=== PATIENT | female | born 1995 | race Two or more races ===

== ENCOUNTER 2024-04-30 23:24 | Emergency (ER) | payer MEDICAID, SELFPAY ==
[2024-04-30 23:54] VITALS: BP 105/67; PULSE 109; RESP 20; TEMP 36.8; O2SAT 99
--- NOTE | 2024-05-01 | XR_ITS ---
Number examination: PA lateral chest 2 views Technique: Upright PA lateral chest 2 views Exam date and time: May 01, 1999 2512 0 5:00 AM Comparison May 16, 2022 Indications: Onset chest pain today. Findings: Normal heart size Lungs are clear. The osseous structures are intact Impression: No active disease
--- NOTE | 2024-05-01 | EKG_ITS ---
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
--- NOTE | 2024-05-01 00:05 | PD.EDRME ---
Rapid Medical Screening Exam RME Arrival date/time: 04/30/24 23:24 29 year old f with c/o of chest pain. I have greeted and performed a focused initial assessment of this patient. A comprehensive ED assessment and evaluation of the patient, analysis of all test results, and completion of the medical decision making process will be conducted by additional ED providers. Chief Complaint: General Adult/Misc Complain Time Seen by Provider: 04/30/24 23:36 Vital signs: Vital Signs Temperature 98.3 F 04/30/24 23:54 Pulse Rate 109 H 04/30/24 23:54 Respiratory Rate 20 04/30/24 23:54 Blood Pressure 105/67 04/30/24 23:54 Pulse Oximetry (%) 99 04/30/24 23:54 Oxygen Delivery Method Room Air 04/30/24 23:54
[2024-05-01] MEDS: ONDANSETRON ODT 4 MG TABRAP PO (00:16)
[2024-05-01 00:23] LABS: Basophils % (Auto) 0 % (0-2.5); Eosinophils # (Auto) 0.1 Thou/mm3 (0.0-0.5); Eosinophils % (Auto) 2 % (0-10); Hematocrit 36.6 % (36.0-46.0); Immature Granulocytes % (Auto) 0 % (0-0); Immature Granulocytes Auto 0.02 Thou/mm3 (0.00-0.00); Lymphocytes # (Auto) 1.7 Thou/mm3 (1.0-4.8); Lymphocytes % (Auto) 19 % (10-50); Mean Corpuscular HGB Conc 32.8 g/dl (31.0-37.0); Mean Corpuscular Hemoglobin 27.9 pg (25.0-35.0); Mean Corpuscular Volume 85 fL (80-100); Monocytes # (Auto) 0.8 Thou/mm3 (0.0-0.8); Monocytes % (Auto) 9 % (0-12); Neutrophils # (Auto) 6.3 Thou/mm3 (1.8-7.7); Neutrophils % (Auto) 71 % (37-80); Nucleated Red Blood Cell % 0 /100 WBC (0); Platelet Count 262 Thou/mm3 (140-440); RDW Standard Deviation 43.9 fL (36.4-46.3); White Blood Count 8.9 Thou/mm3 (3.6-11.0)
[2024-05-01 00:45] LABS: Alanine Aminotransferase 24 U/L (10-49); Albumin, Serum 4.6 gm/dL (3.5-5.0); Albumin/Globulin Ratio 1.6 (1.2-2.2); Alkaline Phosphatase 102 U/L (46-116); Anion Gap 7 (7-16); Aspartate Amino Transferase 17 U/L (0-34); BUN/Creatinine Ratio 23 Ratio (12-20); Bilirubin,Total 0.2 mg/dL (0.3-1.2); Blood Urea Nitrogen 16 mg/dL (9-23); Calcium 9.6 mg/dL (8.3-10.6); Calcium (Corrected) 9.6 mg/dL (8.5-10.1); Carbon Dioxide 27.9 mMol/L (20.0-31.0); Chloride 105 mMol/L (98-107); Creatinine (Component) 0.7 mg/dL (0.6-1.3); Globulin 2.8 gm/dL (2.3-3.5); Glucose 107 mg/dL (74-106); HCG,Qualitative Serum Negative; Osmolality,Calculated 280 (275-295); Sodium 140 mMol/L (136-145); Thyroid Stimulating Hormone 0.51 uIU/mL (0.55-4.78); Total Protein 7.4 gm/dL (5.7-8.2); Troponin I < 0.002 ng/mL (0.0-0.045); eGFR > 60 See Note
--- NOTE | 2024-05-01 02:05 | PD.EDADULT ---
ED General RME/HPI General Chief complaint: General Adult/Misc Complain Stated complaint: RIGHT CP, RIGHT ARM PAIN Time Seen by Provider: 04/30/24 23:36 Source: patient Arrival date/time: 04/30/24 23:24 Mode of arrival: ambulatory Limitations: no limitations RME / HPI RME / HPI narrative: 04/30/24 23:24 29 year old f with c/o of chest pain. I have greeted and performed a focused initial assessment of this patient. A comprehensive ED assessment and evaluation of the patient, analysis of all test results, and completion of the medical decision making process will be conducted by additional ED providers. Dr. Hernandez?s Main ED Evaluation: This is a 29-year-old female who is currently , presenting with right-sided upper chest pain radiating to the right jaw and right arm. She describes the pain as strong and reports it worsens with movement. The patient denies any previous episodes of similar pain. She notes that she fainted approximately one month ago but denies any associated injuries. She denies any recent accidents, falls, or trauma in the past 24 hours. Additionally, she denies any flu-like symptoms or other associated symptoms. The patient has not taken any pain medication for this episode. Related Data Previous Rx's ?Medication ?Instructions ?Recorded dicyclomine 20 mg tablet 20 mg PO BID PRN abdominal pain 12/19/21 #60 tabs meloxicam 7.5 mg tablet 7.5 mg PO QDAY #14 tabs 02/11/22 ondansetron HCl 4 mg tablet 4 mg PO TID PRN nausea and 03/02/22 vomiting #14 tabs rndwtwc-ppcwypvokkjbe-rtlqbwnp 250 1 tab PO Q6H PRN headache #20 tabs 05/16/22 mg-250 mg-65 mg tablet (Excedrin Migraine) dicyclomine 20 mg tablet 20 mg PO BID PRN abdominal pain 02/25/23 #30 tabs Allergies Allergy/AdvReac Type Severity Reaction Status Date / Time Penicillins Allergy Severe UNKNOWN Verified 12/05/23 20:37 soybean Allergy Severe UNKNOWN Verified 12/05/23 20:37 Review of Systems Review of Systems Systems Reviewed: All systems reviewed, normal except as documented ED Exam Narrative Physical exam: GENERAL APPEARANCE: AxOx4, generally well-appearing, no acute distress. HEENT: NC, AT. MMM. EOMI, clear conjunctiva, oropharynx clear. NECK: Supple without lymphadenopathy. No stiffness or restricted ROM. HEART: Normal rate and regular rhythm, normal S1/S1, no m/r/g LUNGS: CTAB, moving air well. No crackles or wheezes are heard. ABDOMEN: Soft, nontender, nondistended with good bowel sounds heard. BACK: No midline C/T/L spine pain or deformity, No CVAT, no obvious deformity. EXTREMITIES: Without cyanosis, clubbing or edema. MUSCULOSKELETAL: FROM of all major joints, no chest tenderness NEUROLOGICAL: Grossly nonfocal. Alert and oriented, moving all 4 extremities. CN not formally tested but appear grossly intact. Observed to ambulate with normal gait. Skin: Warm and dry without any rash. General Limitations: Present no limitations Course Course Course Narrative: CXR is ordered for determining etiology of chest pain. Quality Measures none Orders Category Date Time Status EKG (ED ONLY) *Do not use* NOW Care 05/01/24 00:00 Completed EKG (ED Only) Stat Exams 05/01/24 00:00 Draft XR chest 2V Stat Exams 05/01/24 00:00 Taken CBC Stat Lab 05/01/24 00:17 Completed CMP [Comprehensive Metabolic Panel] Stat Lab 05/01/24 00:17 Completed HCG,Qualitative Serum Stat Lab 05/01/24 00:17 Completed TSH [Thyroid Stimulating Hormone] Stat Lab 05/01/24 00:17 Completed Troponin I Stat Lab 05/01/24 00:17 Completed Ondansetron Odt [Zofran Odt] Med 05/01/24 00:04 Discontinued 4 mg PO X1 ONE Vital Signs Vital signs: Vital Signs Temperature 98.3 F 04/30/24 23:54 Pulse Rate 109 H 04/30/24 23:54 Respiratory Rate 20 04/30/24 23:54 Blood Pressure 105/67 04/30/24 23:54 Pulse Oximetry (%) 99 04/30/24 23:54 Oxygen Delivery Method Room Air 04/30/24 23:54 Procedures -ED Procedure Comment EKG personally interpreted by me 05/01/2024; 2108: Interpreted by me, Normal sinus rhythm, HR 99, normal axis, normal intervals, no acute ST or T-wave changes, no STEMI. MDM Patient data External records reviewed:: [facility] previous records Clinical information provided by:: patient Social determinants that could affect healthcare access:: none Patient has the following chronic illnesses:: See PMH How is presenting disease/condition affected by chronic disease/condition?: uneffected by Evaluation data The following diagnostics were reviewed and interpreted by me:: lab results, radiology exam(s) and EKG tracing(s) Lab and/or radiology exams considered but not ordered:: None Interpretation Summary: See narrative Medications Medications considered but not ordered:: None Medication administrations:: Medication Administration History Discontinued Medications Ondansetron HCl (Ondansetron Odt 4 Mg Tabrap) 4 mg PO X1 ONE; Protocol Stop: 05/01/24 00:05 Last Admin: 05/01/24 00:16 Dose: 4 mg Documented By: KF As above Consultations Consultation(s) initiated? (list below): No Diagnosis Differential Diagnosis ED Complaint MDM: Musculoskeletal pain, pneumonia, and pneumothorax Most likely diagnosis given after review of the tests above:: See clinical impression below Admission Indicated Admission indicated?: not indicated Explain why admission is indicated or not indicated:: Patient has no emergent abnormalities in their studies and can be managed on an outpatient basis. Admission Request Was there a request for admission?: No Disposition Plan Disposition Plan: Discharge Discharge Attestation Discharge Attestation: The patient and all family members were given an opportunity to ask questions and understood the discharge instructions. Discharge instructions specifically effects, indications for sooner follow up or return to the emergency department, and the expected course of current diagnosis. Patient condition: Stable Medical Decision Making [facility] Narrative MDM Narrative: Scribe Attestation: Amanda Wilson am scribing for and in the presence of Dr. Hernandez. Provider Notation: Although this document has been carefully reviewed, there may still be some phonetic and other typographical errors. These errors are purely grammatical due to imperfections in the software program and should not be construed in any way to compromise the substance of the patient's medical care during this visit. Differential Diagnosis Differential Diagnosis: Musculoskeletal pain, pneumonia, and pneumothorax Medical Records Medical records reviewed: Yes I reviewed the patient's medical records. Lab Data Lab results reviewed: Yes I reviewed the patient's lab results. 05/01/24 00:17 05/01/24 00:17 Labs: Lab Results 05/01/24 Range/Units 00:17 WBC 8.9 (3.6-11.0) Thou/mm3 RBC 4.30 (4.00-5.20) Miln/mm3 Hgb 12.0 (12.0-16.0) g/dL Hct 36.6 (36.0-46.0) % MCV 85 (80-100) fL MCH 27.9 (25.0-35.0) pg MCHC 32.8 (31.0-37.0) g/dl RDW Std Deviation 43.9 (36.4-46.3) fL Plt Count 262 (140-440) Thou/mm3 Neut % (Auto) 71 (37-80) % Lymph % (Auto) 19 (10-50) % [place] % (Auto) 9 (0-12) % Eos % (Auto) 2 (0-10) % Baso % (Auto) 0 (0-2.5) % Neut # (Auto) 6.3 (1.8-7.7) Thou/mm3 Lymph # (Auto) 1.7 (1.0-4.8) Thou/mm3 [place] # (Auto) 0.8 (0.0-0.8) Thou/mm3 Eos # (Auto) 0.1 (0.0-0.5) Thou/mm3 Baso # (Auto) 0.0 (0.0-0.2) Thou/mm3 Immature Gran # (Auto) 0.02 H (0.00-0.00) Thou/mm3 Absolute Nucleated RBC 0.00 (0.00-0.00) Thou/mm3 Immature Gran % 0 (0-0) % Nucleated RBC % 0 (0) /100 WBC Sodium 140 (136-145) mMol/L Potassium 4.0 (3.4-5.1) mMol/L Chloride 105 (98-107) mMol/L Carbon Dioxide 27.9 (20.0-31.0) mMol/L Anion Gap 7 (7-16) BUN 16 (9-23) mg/dL Creatinine 0.7 (0.6-1.3) mg/dL Estim Creat Clear Calc Not Performed. eGFR > 60 (60 - ) See Note BUN/Creatinine Ratio 23 H (12-20) Ratio Glucose 107 H (74-106) mg/dL Calculated Osmolality 280 (275-295) Calcium 9.6 (8.3-10.6) mg/dL Corrected Calcium 9.6 (8.5-10.1) mg/dL Total Bilirubin 0.2 L (0.3-1.2) mg/dL AST 17 (0-34) U/L ALT 24 (10-49) U/L Alkaline Phosphatase 102 (46-116) U/L Troponin I < 0.002 (0.0-0.045) ng/mL Total Protein 7.4 (5.7-8.2) gm/dL Albumin 4.6 (3.5-5.0) gm/dL Globulin 2.8 (2.3-3.5) gm/dL Albumin/Globulin Ratio 1.6 (1.2-2.2) TSH 0.51 L (0.55-4.78) uIU/mL HCG, Qual Negative Radiology Data Radiology results reviewed: Yes I reviewed the patient's radiology results. Discharge Plan Plan Patient Disposition: HOME (Self Care) Prescriptions/Referrals Prescriptions/Med Rec: No Action dicyclomine 20 mg tablet 20 mg PO BID MDD 40 mg PRN (Reason: abdominal pain) Qty: 60 0RF ondansetron HCl 4 mg tablet 4 mg PO TID PRN (Reason: nausea and vomiting) Qty: 14 0RF Excedrin Migraine 250-250-65 mg tablet 1 tab PO Q6H PRN (Reason: headache) Qty: 20 0RF meloxicam 7.5 mg tablet 7.5 mg PO QDAY Qty: 14 0RF dicyclomine 20 mg tablet 20 mg PO BID PRN (Reason: abdominal pain) Qty: 30 0RF Referrals: Davin Nichole PA-C [Primary Care Provider] - In 1 week Problem List Clinical Impression: Chest pain Patient/Caregiver Discharge Instructions Education Materials: ED Chest Pain, Uncertain Cause Additional Instructions: Noah un seguimiento con thrasher m?dico de atenci?n primaria en 3 a 5 d?as para volver a controlarlo. Puede regresar al departamento de emergencias antes si los s?ntomas empeoran o si nota alg?n problema nuevo y preocupante. Print Language: [place] Stand Alone Forms: Leonie Award Info., Patient Portal Info Letter
[2024-05-01 02:12] VITALS: BP 110/71; PULSE 96; RESP 18; O2SAT 98
== END 2024-05-01 02:13 | disposition home or self-care (01) ==
PROVIDERS: Physician Assistant; Emergency Provider Emergency Medicine; PCP Physician Assistant Medical
DX: R07.9 Chest pain, unspecified (principal)
CPT/HCPCS: 36415; 71046; 80053; 84443; 84484; 84703; 85025; 93005; 99283; Q0162

== ENCOUNTER 2024-09-13 20:47 | Emergency (ER) | payer MEDICAID, SELFPAY ==
[2024-09-13 20:50] VITALS: BMI 84.6
--- NOTE | 2024-09-13 20:57 | EKG_ITS ---
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
[2024-09-13 21:13] VITALS: BP 110/73; PULSE 101; RESP 18; TEMP 36.9; O2SAT 97
--- NOTE | 2024-09-13 21:41 | XR_ITS ---
Examination: PA lateral chest 2 views TECHNIQUE: Upright PA and lateral chest 2 views Date and time: September 13, 2024 2159 hours INDICATIONS: Chest pain nausea vomiting today. FINDINGS: Normal heart size. No aspiration pneumonia The osseous structures are intact IMPRESSION: Negative for aspiration pneumonia
--- NOTE | 2024-09-13 21:45 | PD.EDRME ---
Rapid Medical Screening Exam RME Arrival date/time: 09/13/24 20:47 Chief Complaint: Chest Pain Time Seen by Provider: 09/13/24 21:30 Vital signs: Vital Signs Temperature 98.4 F 09/13/24 21:13 Pulse Rate 101 H 09/13/24 21:13 Respiratory Rate 18 09/13/24 21:13 Blood Pressure 110/73 09/13/24 21:13 Pulse Oximetry (%) 97 09/13/24 21:13 Oxygen Delivery Method Room Air 09/13/24 21:13 Vital signs reviewed by provider: Yes RME Narrative: 29-year-old female presents with a 4-hour history of severe headache that began at approximately 5 PM, then she experienced left arm pain, then left anterior chest pain, then severe nausea and vomiting. She is vomited approximately 6 times since the onset of her symptoms. She denies any recent illness with fever, chills, cough, upper respiratory complaints, abdominal pain, dysuria or frequency. I have greeted and performed a focused initial assessment of this patient. A comprehensive ED assessment and evaluation of the patient, analysis of all test results, and completion of the medical decision making process will be conducted by additional ED providers.
[2024-09-13 22:11] LABS: Basophils % (Auto) 0 % (0-2.5); Eosinophils # (Auto) 0.1 Thou/mm3 (0.0-0.5); Eosinophils % (Auto) 0 % (0-10); Hematocrit 40.2 % (36.0-46.0); Hemoglobin 12.8 g/dL (12.0-16.0); Immature Granulocytes % (Auto) 0 % (0-0); Immature Granulocytes Auto 0.03 Thou/mm3 (0.00-0.00); Lymphocytes # (Auto) 1.4 Thou/mm3 (1.0-4.8); Lymphocytes % (Auto) 12 % (10-50); Mean Corpuscular HGB Conc 31.8 g/dl (31.0-37.0); Mean Corpuscular Hemoglobin 26.3 pg (25.0-35.0); Mean Corpuscular Volume 83 fL (80-100); Monocytes # (Auto) 0.5 Thou/mm3 (0.0-0.8); Monocytes % (Auto) 5 % (0-12); Neutrophils # (Auto) 9.2 Thou/mm3 (1.8-7.7); Neutrophils % (Auto) 82 % (37-80); Nucleated Red Blood Cell % 0 /100 WBC (0); Platelet Count 260 Thou/mm3 (140-440); RDW Standard Deviation 41.7 fL (36.4-46.3); Red Blood Count 4.86 Miln/mm3 (4.00-5.20); White Blood Count 11.2 Thou/mm3 (3.6-11.0)
[2024-09-13 22:29] LABS: Partial Thromboplastin Time 29.3 Seconds (22.0-36.0); Prothrombin Time 10.5 Seconds (9.0-12.2)
[2024-09-13 22:30] LABS: B-Type Natriuretic Peptide < 20 pg/mL (0-100)
[2024-09-13 23:04] LABS: Anion Gap 12 (7-16); BUN/Creatinine Ratio 17 Ratio (12-20); Blood Urea Nitrogen 12 mg/dL (9-23); Carbon Dioxide 26.7 mMol/L (20.0-31.0); Chloride 105 mMol/L (98-107); Creatinine (Component) 0.7 mg/dL (0.6-1.3); Potassium 4.2 mMol/L (3.4-5.1); Sodium 144 mMol/L (136-145)
[2024-09-13 23:05] LABS: Alanine Aminotransferase 15 U/L (10-49); Albumin, Serum 4.4 gm/dL (3.5-5.0); Albumin/Globulin Ratio 1.6 (1.2-2.2); Alkaline Phosphatase 104 U/L (46-116); Aspartate Amino Transferase 14 U/L (0-34); Bilirubin,Total 0.3 mg/dL (0.3-1.2); Calcium 8.9 mg/dL (8.3-10.6); Calcium (Corrected) 8.9 mg/dL (8.5-10.1); Estimated Creatinine Clearance 213.5 mL/min (>60); Globulin 2.8 gm/dL (2.3-3.5); Glucose 110 mg/dL (74-106); LDH (Lactate Dehydrogenase) 177 U/L (120-246); Osmolality,Calculated 287 (275-295); Total Protein 7.2 gm/dL (5.7-8.2); Troponin I < 0.002 ng/mL (0.0-0.045); eGFR > 60 See Note
[2024-09-13 23:34] LABS: Collection Type, Urine Clean Catch
[2024-09-13] MEDS: IBUPROFEN TAB 600 MG TABLET PO (23:45)
[2024-09-13 23:47] LABS: Bacteria,Urine Rare; Bilirubin,Urine Negative (Negative); Blood,Urine 2+ (Negative); Clarity,Urine Turbid (Clear/Hazy); Color,Urine Lt-Yellow (Lt Yel-Yel); Glucose, Urine Negative (Negative); Ketones,Urine Negative (Negative); Leukocyte Esterase,Urine Negative (Negative); Nitrite,Urine Positive (Negative); PH,Urine 6.5 (5.0-7.0); Protein,Urine Negative (Neg - Trace); RBC,Urine 3 /hpf (0-3); Specific Gravity,Urine 1.029 (1.001-1.035); Squamous Epithelial Cell,Urine 3 /hpf (0-5); Urobilinogen,Urine Negative mg/dL (0.0-1.0); WBC,Urine 4 /hpf (0-5)
[2024-09-13 23:50] LABS: Amphetamine/Methamp Scrn,U Negative (Negative); Barbiturate Screen,Urine Negative (Negative); Benzodiazepines Screen,Urine Negative (Negative); Benzoylecgonine Screen, Ur Negative (Negative); Fentanyl Screen,Urine Negative (Negative); Opiate Screen,Urine Negative (Negative); THC Screen,Urine Negative (Negative)
[2024-09-14 01:05] LABS: HCG Qualitative,Urine Negative
== END 2024-09-14 00:40 | disposition left against medical advice (07) ==
LOC: SERX 21:31
PROVIDERS: Physician Assistant; Emergency Provider Emergency Medicine; PCP Physician Assistant Medical
DX: R07.89 Other chest pain (principal); R51.9 Headache, unspecified; M79.602 Pain in left arm; R11.2 Nausea with vomiting, unspecified; R00.0 Tachycardia, unspecified; Z53.29 Procedure and treatment not carried out because of patient's decision for other reasons
CPT/HCPCS: 36415; 71046; 80053; 80307; 81001; 81025; 83615; 83735; 83880; 84484; 85025; 85610; 85730; 93005; 99281; A9270